=== PATIENT | male | born 1995 | race Two or more races ===

== ENCOUNTER 2024-07-01 15:36 | Emergency (ER) | payer MEDICAID ==
[~2024-07-01] VITALS: Ht 167.6 cm; Wt 81.0 kg
[2024-07-01 15:41] VITALS: TEMP 98.5
[2024-07-01] MEDS: PERTUSS(ACELL),DIPH,TET/PF 0.5 ML SYRINGE [ADULT] IM. ONE (18:56)
[2024-07-01] MEDS: TraMADol HCL 50 MG TABLET PO ONE (19:26)
[2024-07-01 20:15] VITALS: BP 117/70; PULSE 80; RESP 16; O2SAT 100
== END 2024-07-01 20:42 | disposition home or self-care (01) ==
LOC: EMS 15:36
DX: S06.0X0A Concussion without loss of consciousness, initial encounter (principal); S01.81XA Laceration without foreign body of other part of head, initial encounter; M54.2 Cervicalgia; M54.6 Pain in thoracic spine; V89.2XXA Person injured in unspecified motor-vehicle accident, traffic, initial encounter; Y93.89 Activity, other specified; Y92.89 Other specified places as the place of occurrence of the external cause; Y99.8 Other external cause status
CPT/HCPCS: 12011; 70450; 70486; 72125; 72128; 72131; 90471; 90715; 99285